=== PATIENT | female | born 1995 | race Two or more races ===

== ENCOUNTER 2023-08-17 10:16 | Emergency (ER) | payer MEDICAID, OTHER ==
[~2023-08-17] VITALS: Ht 162.6 cm; Wt 68.0 kg
[2023-08-17] MEDS ORDERED: ACET-1080 PO (11:32)
[2023-08-17] MEDS ORDERED: AMOX875T3 PO (11:32)
[2023-08-17 11:44] VITALS: BP 97/69; PULSE 90; RESP 18; TEMP 98.5; O2SAT 100
== END 2023-08-17 11:47 | disposition home or self-care (01) ==
LOC: ER 10:16
DX: O26.891 Other specified pregnancy related conditions, first trimester (principal); H66.92 Otitis media, unspecified, left ear; K04.7 Periapical abscess without sinus; Z79.2 Long term (current) use of antibiotics; Z79.899 Other long term (current) drug therapy; Z3A.12 12 weeks gestation of pregnancy

== ENCOUNTER 2023-11-21 12:42 | Observation (INO) | payer OTHER ==
[~2023-11-21 12:42] MED LIST: ACET-1080 PO; AMOX875T3 PO
[2023-11-21] MEDS ORDERED: PREN-96 PO (14:11)
== END 2023-11-21 14:30 | disposition home or self-care (01) ==
LOC: LDRP 12:42 → UNDOADMOB 12:42 → LDRP 12:46 → UNDODISOB 14:30
PROVIDERS: ADMIT Obstetrics & Gynecology; ATTEND Obstetrics & Gynecology
DX: O26.892 Other specified pregnancy related conditions, second trimester (principal); M54.32 Sciatica, left side; R10.2 Pelvic and perineal pain; M79.605 Pain in left leg; Z3A.25 25 weeks gestation of pregnancy; Z98.891 History of uterine scar from previous surgery
CPT/HCPCS: 59025; 81002; 94760; G0378

== ENCOUNTER 2024-02-21 03:12 | Inpatient (IN) | payer MEDICAID, OTHER ==
[~2024-02-21] VITALS: Ht 160 cm; Wt 80.7 kg
[2024-02-21] VITALS (20 sets, daily range): BP systolic 105–138; BP diastolic 61–85; PULSE 76–109; RESP 11–20; TEMP 98–98.1; O2SAT 90–100
[~2024-02-21 03:12] MED LIST changes: +PREN-96 PO
[2024-02-21 04:42] LABS: Basophils # (auto) 0 10 ^3/uL (0-0.2); Basophils % (auto) 0.3 % (0.0-2.0); Eosinophils # (auto) 0 10 ^3/uL (0-0.8); Lymphocytes # (auto) 1.3 10 ^3/uL (0.4-5.4); Mean Corpuscular Hemoglobin 26.9 pg (28.0-32.0)
[2024-02-21 04:44] LABS: Hematocrit 33.1 % (36.0-46.0); Hemoglobin 10.9 g/dL (12.2-16.2); Lymphocytes % (auto) 13.7 % (10.0-50.0); Mean Corpuscular Hgb Conc. 32.9 g/dL (32.0-36.0); Mean Corpuscular Volume 81.7 fL (80.0-100.0); Monocytes # (auto) 0.3 10 ^3/uL (0-1.3); Monocytes % (auto) 3.5 % (0.0-12.0); Neutrophils # (auto) 7.9 10 ^3/uL (1.6-8.6); Neutrophils % (auto) 82.5 % (37.0-80.0); Nucleated Red Blood Cells % 0.2 %; Red Blood Cells 4.05 10^6/uL (4.0-5.20); Red Cell Distribution Width 15.3 % (11.8-14.3); White Blood Cell 9.6 10^3/uL (4.4-10.8)
[2024-02-21 04:53] LABS: Albumin 3.9 g/dL (3.2-4.8); Alkaline Phosphatase 232 U/L (46-116); Anion Gap 7 (5-15); Aspartate Aminotransferase 14 U/L (13-40); Bilirubin, Total 0.3 mg/dL (0.2-1.0); Blood Urea Nitrogen 9 mg/dL (9-23); Calcium 9.6 mg/dL (8.7-10.4); Carbon Dioxide 21 mmol/L (20-30); Chloride 107 mmol/L (98-107); Glucose 98 mg/dL (74-106); Potassium 3.9 mmol/L (3.5-5.1); Sodium 135 mmol/L (136-145)
[2024-02-21 04:54] LABS: Total Protein 6.9 g/dL (5.7-8.2)
[2024-02-21] MEDS: LACTATED RINGER'S 1,000 ML IV ONE (04:55)
[2024-02-21 04:58] LABS: INR 0.89 (0.9-1.15); Partial Thromboplastin Time 27.1 SEC (24.5-34.5); Prothrombin Time 9.4 sec (9.3-11.8)
[2024-02-21 04:59] LABS: Alanine Aminotransferase < 9 U/L (7-40)
[2024-02-21] MEDS ORDERED: fentaNYL CITRATE 100 MCG/2 ML VL ONE (05:05)
[2024-02-21] MEDS ORDERED: MIDAZOLAM HCL 2MG/2ML 2ml VIAL (1mg/ml) ONE (05:05)
[2024-02-21] MEDS ORDERED: MORPHINE SULF PF 5 MG/10 ML VIAL ONE (05:05)
[2024-02-21] MEDS ORDERED: ceFAZolin 1GM/50ML 50 ML IV SCH (05:15)
[2024-02-21] MEDS ORDERED: ONDANSETRON HCL 4 MG/2 ML VIAL IV PRN (05:15)
[2024-02-21] MEDS ORDERED: oxyTOCIN 10 UNIT/ML 10ML VIAL ONE (05:24)
[2024-02-21] MEDS ORDERED: DOCU-94 PO (05:59)
[2024-02-21] MEDS ORDERED: IBUP-1456 PO (05:59)
[2024-02-21] MEDS ORDERED: HYDR-4902 PO (05:59)
[2024-02-21] MEDS: TERBUTALINE SULFATE 1 MG/ML 1ML VIAL SC ONE ×2 (06:17→07:35)
[2024-02-21] MEDS ORDERED: DexAMETHasone SOD PHOS 10MG/1ML VIAL INJ IV PRN (06:30)
[2024-02-21] MEDS ORDERED: HYDROmorphone HCL 2 MG/ML VL/or syr IV PRN ×2 (06:30)
[2024-02-21] MEDS ORDERED: NALOXONE HCL 0.4 MG/ML VIAL IV PRN (06:30)
[2024-02-21] MEDS ORDERED: MIDAZOLAM HCL 2MG/2ML 2ml VIAL (1mg/ml) IV PRN (06:30)
[2024-02-21] MEDS ORDERED: ePHEDrine SULFATE 50 MG/ML AMP IV PRN (06:30)
[2024-02-21] MEDS: ceFAZolin 2 GM/D5W50ml 50 ML IV ONE (07:35)
[2024-02-21] MEDS: LACTATED RINGER'S 1,000 ML IV SCH (07:35)
[2024-02-21] MEDS: TETRACAINE 1% INJ 2 ML VIAL IJ ONE (07:36)
[2024-02-21] MEDS: ONDANSETRON HCL 4 MG/2 ML VIAL IV ONE (07:36)
[2024-02-21] MEDS: LACT. RINGERS/OXYTOCIN 20UNITS 1,000 ML IV ONE (07:36)
[2024-02-21] MEDS: DIPHENOXYLATE W/ATROPINE 2.5 MG TAB PO ONE (07:52)
[2024-02-21 08:11] LABS: Urine Bacteria None Seen /hpf (None Seen)
[2024-02-21 08:24] LABS: Urine Blood 1+ /uL (Negative); Urine Clarity Turbid (Clear); Urine Color Light-Orange (Yellow); Urine Mucus FEW (None Seen); Urine Protein, UAD 1+ (Negative); Urine Specific Gravity 1.022 (1.001-1.035); Urine Urobilinogen Normal (Negative); Urine WBC 6 /hpf (0 - 5)
[2024-02-21] MEDS: CARBOPROST TROMETHAMINE 250 MCG/1ML VIAL IM ONE (08:24)
[2024-02-21 08:39] LABS: Amphetamine Screen, Urine Neg (NEGATIVE); Barbiturate Scree,Urine Neg (NEGATIVE); Benzodiazephine Screen, Urine Neg (NEGATIVE); Cocaine Screen, Urine Neg (NEGATIVE); Opiate Scree,Urine Neg (NEGATIVE); Phencyclidine Screen, Urine Neg (NEGATIVE)
[2024-02-21 08:40] LABS: Cannabinoid Screen, Urine Neg (NEGATIVE)
[2024-02-21] MEDS: ACETAMINOPHEN IV 1000 MG/100ML (10MG/ML) IV PRN (09:57)
[2024-02-21] MEDS: ONDANSETRON HCL 4 MG/2 ML VIAL IV PRN (10:02)
[2024-02-21] MEDS: ceFAZolin 1GM/50ML 50 ML IV SCH ×2 (15:02→23:16)
[2024-02-21 21:15] LABS: Basophils # (auto) 0 10 ^3/uL (0-0.2); Basophils % (auto) 0.3 % (0.0-2.0); Eosinophils # (auto) 0 10 ^3/uL (0-0.8); Eosinophils % (auto) 0.1 % (0.0-7.0); Hematocrit 31.5 % (36.0-46.0); Lymphocytes # (auto) 1.4 10 ^3/uL (0.4-5.4); Lymphocytes % (auto) 13.4 % (10.0-50.0); Mean Corpuscular Hemoglobin 26.1 pg (28.0-32.0); Mean Corpuscular Hgb Conc. 31.6 g/dL (32.0-36.0); Mean Corpuscular Volume 82.6 fL (80.0-100.0); Monocytes # (auto) 0.5 10 ^3/uL (0-1.3); Monocytes % (auto) 5.2 % (0.0-12.0); Neutrophils # (auto) 8.4 10 ^3/uL (1.6-8.6); Red Blood Cells 3.81 10^6/uL (4.0-5.20); Red Cell Distribution Width 15.4 % (11.8-14.3); White Blood Cell 10.4 10^3/uL (4.4-10.8)
[2024-02-21] MEDS: ceFAZolin 1GM/50ML 50 ML IV ONE (23:15)
[2024-02-22] VITALS (12 sets, daily range): BP systolic 111–139; BP diastolic 61–92; PULSE 77–139; RESP 16–18; TEMP 97.8–100; O2SAT 93–99
[2024-02-22 07:13] LABS: Basophils # (auto) 0 10 ^3/uL (0-0.2); Basophils % (auto) 0.3 % (0.0-2.0); Eosinophils # (auto) 0 10 ^3/uL (0-0.8); Neutrophils # (auto) 7.3 10 ^3/uL (1.6-8.6); Nucleated Red Blood Cells % 0.1 %; Red Cell Distribution Width 15.7 % (11.8-14.3); White Blood Cell 9.2 10^3/uL (4.4-10.8)
[2024-02-22 07:19] LABS: Hematocrit 30.6 % (36.0-46.0); Lymphocytes # (auto) 1.4 10 ^3/uL (0.4-5.4); Lymphocytes % (auto) 15.4 % (10.0-50.0); Mean Corpuscular Hemoglobin 26.9 pg (28.0-32.0); Mean Corpuscular Hgb Conc. 32.6 g/dL (32.0-36.0); Mean Corpuscular Volume 82.6 fL (80.0-100.0); Monocytes # (auto) 0.5 10 ^3/uL (0-1.3); Neutrophils % (auto) 79.3 % (37.0-80.0); Red Blood Cells 3.71 10^6/uL (4.0-5.20)
[2024-02-22] MEDS ORDERED: HYDROcodone-ACET 5/325MG TAB PO PRN (07:30)
[2024-02-22] MEDS ORDERED: BISACODYL 10 MG RECT SUPP PR PRN (07:30)
[2024-02-22 08:06] LABS: RPR Non Reactive (Non Reactive)
[2024-02-22] MEDS: ceFAZolin 1GM/50ML 50 ML IV ONE (08:31)
[2024-02-22] MEDS: DOCUSATE SOD 100 MG CAP PO SCH (10:04)
[2024-02-22] MEDS: DOCUSATE CALCIUM 240 MG CAP PO SCH (10:04)
[2024-02-22] MEDS: HYDROcodone-ACET 5/325MG TAB PO PRN (10:40)
[2024-02-22] MEDS: SIMETHICONE 80 MG CHEWABLE TABLET PO SCH (12:49)
[2024-02-22] MEDS: IBUPROFEN 800 MG TAB PO PRN (14:34)
[2024-02-23 03:13] VITALS: BP 114/64; PULSE 67; RESP 16; TEMP 98.1; O2SAT 98
[2024-02-23 07:00] VITALS: BP 121/76; PULSE 83; RESP 15; TEMP 97.8; O2SAT 95
[2024-02-23 10:56] VITALS: BP 115/80; PULSE 90; RESP 15; TEMP 98.1; O2SAT 96
[2024-02-23 19:06] LABS: Treponema pallidum Ab (FTA-Ab) Non Reactive (Non Reactive)
== END 2024-02-23 13:15 | disposition home or self-care (01) | DRG 540 ==
LOC: LDRP 03:12 → OBSVTOIN 04:15 → LDRP 06:12
PROVIDERS: ADMIT Obstetrics & Gynecology; ATTEND Obstetrics & Gynecology
PROC: 10D00Z1 Extraction of Products of Conception, Low, Open Approach (ICD-10-PCS; principal; 2024-02-21 05:07)
DX: O34.211 Maternal care for low transverse scar from previous cesarean delivery (principal); Z37.0 Single live birth; Z3A.38 38 weeks gestation of pregnancy
CPT/HCPCS: 36415; 59025; 76815; 80053; 80307; 81001; 81002; 85025; 85610; 85730; 86592; 86850; 86900; 86901; 94760; 94762; 96360; 96361; 96365; 96372; 96374; G0378; J0131; J2250; J2405; J2590